=== PATIENT | male | born 2000 | race Caucasian/White ===

== ENCOUNTER 2021-06-08 06:40 | Emergency (ER) | payer OTHER, SELFPAY ==
[2021-06-08] MEDS ORDERED: Lidocaine 1% w/Epinephrine 1:100K 20 ML VIAL ONE (06:46)
[2021-06-08] MEDS ORDERED: levETIRAcetam in NS 100 ML ONE (06:50)
[2021-06-08] MEDS ORDERED: Bacitracin 1 PK ONE (07:21)
[2021-06-08] MEDS ORDERED: Boostrix 0.5 ML (Tdap) VIAL ONE (07:21)
[2021-06-08 07:26] LABS: Hemoglobin 13.4 g/dL (13.5-17.5); Mean Corpuscular HGB CONC 33.7 g/dL (32.0-36.0); Mean Corpuscular Hemoglobin 29.5 pg (27.0-33.0); Mean Corpuscular Volume 87.5 fl (81.2-95.1); Mean Platelet Volume 10.7 fl (7.4-10.4); Platelet Count 227 10x3/uL (150-450); RBC Distribution Width 11.9 % (11.5-14.5); Red Blood Cell (RBC) Count 4.55 10x6/uL (4.32-5.72); White Blood Cell (WBC) Count 7.5 10x3/uL (3.5-10.5)
[2021-06-08 07:42] LABS: MDiff Complete? YES
[2021-06-08 07:48] LABS: Eosinophils 1 % (0-10); Lymphocytes 64 % (21-51); Monocytes 3 % (0-10); Neutrophil 30 % (42-75); Reactive Lymphocytes 1 % (0-10)
[2021-06-08 07:49] LABS: Platelet Morphology Comment Appears Adequate
[2021-06-08 07:50] LABS: RBC Morphology Normal
[2021-06-08 07:55] LABS: ALT (SGPT) 23 U/L (8-55); AST (SGOT) 25 U/L (5-34); Albumin 3.7 g/dL (3.5-5.0); Alkaline Phosphatase 48 U/L (40-110); Anion Gap 12 mmol/L (10-20); BUN (Urea Nitrogen) 7 mg/dL (8.9-20.6); Bilirubin, Total 0.2 mg/dL (0.2-1.2); Calc. Creatinine Clearance 0 mL/min (70-130); Calcium 8.9 mg/dL (7.8-10.44); Carbon Dioxide 22 mmol/L (22-29); Chloride 109 mmol/L (98-107); Globulin 2.7 g/dL (2.4-3.5); Glucose 95 mg/dL (70-105); Potassium 4.4 mmol/L (3.5-5.1); Protein, Total 6.4 g/dL (6.0-8.3); Sodium 139 mmol/L (136-145)
== END 2021-06-08 09:10 | disposition home or self-care (01) ==
LOC: CSHERS 06:40
DX: S01.81XA Laceration without foreign body of other part of head, initial encounter (principal); S80.01XA Contusion of right knee, initial encounter; G40.909 Epilepsy, unspecified, not intractable, without status epilepticus; Z23 Encounter for immunization; Z79.899 Other long term (current) drug therapy; W19.XXXA Unspecified fall, initial encounter
CPT/HCPCS: 12042; 70450; 70486; 80053; 85025; 90471; 90715; 93005; 96374; J1953